=== PATIENT | male | born 1995 | race Caucasian/White ===

== ENCOUNTER 2023-07-21 15:50 | Emergency (ER) | payer OTHER, SELFPAY ==
[2023-07-21 15:54] VITALS: BP 137/66; PULSE 90; TEMP 36.8; O2SAT 99; BMI 23.5
--- NOTE | 2023-07-21 16:17 | ED.ANIMALBI1 ---
HPI - Animal Bite General Chief Complaint: Skin/Abscess/Foreign Body Stated Complaint: Bite - Dog Time Seen by Provider: 07/21/23 15:55 Source: patient Mode of arrival: walk-in Limitations: no limitations History of Present Illness HPI narrative: patient bitten yesterday by his girlfriend's dog. They brought home a new dog and the two started fighting -he intervened and the established dog bit him in the right forearm. He cleaned the puncture temple on the right forearm yesterday. He says that his tetanus is not up to date. Related Data Previous Rx's ?Medication ?Instructions ?Recorded amoxicillin 875 mg-potassium 1 tab PO BID #14 tabs 07/21/23 clavulanate 125 mg tablet Allergies Allergy/AdvReac Type Severity Reaction Status Date / Time No Known Drug Allergies Allergy Verified 07/21/23 15:54 Exam Narrative Exam Narrative: Nurses notes and vital signs reviewed and patient is not hypoxic. afebrile General: Well-appearing and in no apparent distress. Skin: Warm, dry, no pallor noted. No rash. Eye: Pupils are equal, round and EOMI. No scleral icterus. Ears, Nose, Mouth, and Throat: face not affected. Oral mucosa is moist Cardiovascular: normal peripheral perfusion. Respiratory: No accessory muscle use or respiratory distress. Musculoskeletal: RIGHT FOREARM: three punctate puncture temple to the soft tissue of the right forearm. No erythema, swelling or drainage from the punctures noted. Able to move the right wrist, elbow, fingers of right hand with expected strength. All 4 extremities with normal ROM, no hand or wrist tenderness, no upper extremity edema/swelling Neurological: A&O x4. No cranial nerve dysfunction observed. No truncal ataxia. Moves all extremities. Sensation intact. Psychiatric: Cooperative and interactive. Normal mood and affect. Constitutional Vital Signs, click to edit/add: Last Vital Signs Temp 98.3 F 07/21/23 15:54 Pulse 90 07/21/23 15:54 Resp 18 07/21/23 15:54 BP 137/66 07/21/23 15:54 Pulse Ox 99 07/21/23 15:54 Course Vital Signs Vital signs: Vital Signs Temperature 98.3 F 07/21/23 15:54 Pulse Rate 90 07/21/23 15:54 Respiratory Rate 18 07/21/23 15:54 Blood Pressure 137/66 07/21/23 15:54 Pulse Oximetry 99 07/21/23 15:54 Temperature 98.3 F 07/21/23 15:54 Pulse Rate 90 07/21/23 15:54 Respiratory Rate 18 07/21/23 15:54 Blood Pressure 137/66 07/21/23 15:54 Pulse Oximetry 99 07/21/23 15:54 MDM - Animal Bite MDM Narrative Medical decision making narrative: tetanus updated. Patient counseled on reasons to return including signs of infection. Prescribed augmentin BID x 1 week. Discharge Plan Discharge Stand Alone Forms: Portal Instructions Chief Complaint: Skin/Abscess/Foreign Body Clinical Impression: Puncture wound, Dog bite of right forearm Patient Disposition: Home, Self-Care Time of Disposition Decision: 16:22 Prescriptions / Home Meds: New amoxicillin-pot clavulanate 875-125 mg tablet 1 tab PO BID Qty: 14 0RF Print Language: Yoruba Instructions: Animal Bite (ED) Referrals: Physician,Non-Staff, MD [Primary Care Provider] - 1 week
[2023-07-21] MEDS: ADACEL DIPH,PERTUSS(ACELL),TET VAC/PF 0.5 ML ADULT SYRINGE IM (16:23)
== END 2023-07-21 16:30 | disposition home or self-care (01) ==
PROVIDERS: Emergency Provider Emergency Medicine
DX: S51.851A Open bite of right forearm, initial encounter (principal); Z23 Encounter for immunization; W54.0XXA Bitten by dog, initial encounter
CPT/HCPCS: 90471; 90715; 99284

== ENCOUNTER 2023-07-25 22:39 | Emergency (ER) | payer OTHER, SELFPAY ==
[2023-07-25 22:42] VITALS: BP 172/98; PULSE 93; TEMP 36.9; O2SAT 97; BMI 23.2
--- NOTE | 2023-07-25 22:51 | ED.GENADUL1 ---
HPI HPI - General Adult General Chief complaint: Upper Respiratory Infection Stated complaint: poss allergic reaction to meds Time Seen by Provider: 07/25/23 22:41 History of Present Illness HPI narrative: 27-year-old male presents for headache and head pressure and nausea. He thinks he may be having a reaction to the Augmentin that he has been on. He started the Augmentin 4 days ago and beginning 4 days ago shortly after starting the Augmentin he developed the symptoms. No fever or cough or chest pain. He is not complaining of shortness of breath and has not had a skin rash. He vomited once today. Related Data Previous Rx's ?Medication ?Instructions ?Recorded amoxicillin 875 mg-potassium 1 tab PO BID #14 tabs 07/21/23 clavulanate 125 mg tablet ibuprofen 800 mg tablet 800 mg PO Q8H PRN pain #20 tabs 07/25/23 loratadine 5 mg-pseudoephedrine ER 1 tab PO Q12H PRN nasal congestion 07/25/23 120 mg tablet,extended #20 tabs release,12hr (Claritin-D 12 Hour) ondansetron 4 mg disintegrating 4 mg PO Q6H PRN nausea and 07/25/23 tablet vomiting #20 tabs Allergies Allergy/AdvReac Type Severity Reaction Status Date / Time No Known Drug Allergies Allergy Verified 07/25/23 22:45 Opioid HPI Opioid Management Most Recent Opioid Data: Last Pain Scale 1 07/21/23 15:59 Review of Systems ROS Narrative A ten point review of systems is negative except as noted above. Exam Narrative Exam Narrative: Nurses note and vital signs reviewed and patient is not hypoxic. General: The patient appears well and in no apparent distress. Patient is resting comfortably on cart. Skin: Warm, dry, no pallor noted. There is no rash noted. Dog bite on his right forearm has healed well. No erythema or any other evidence of an infection Head: Normocephalic, atraumatic Eye: Normal conjunctiva, no drainage Ears, Nose, Mouth, and Throat: oral mucosa is moist. Nares patent. Tongue not swollen. No exudate. Cardiovascular: Regular Rate and Rhythm Respiratory: Patient is in no distress, no accessory muscle use, lungs are clear to auscultation, no wheezing, rales or rhonchi Back: non-tender GI: Normal bowel sounds, no tenderness to palpation, no masses appreciated. No rebound, guarding, or rigidity noted. Musculoskeletal: The patient has no evidence of calf tenderness, no pitting edema, symmetrical pulses noted bilaterally Neurological: A&O, normal speech Psychiatric: Cooperative Constitutional Vital Signs, click to edit/add: Last Vital Signs Temp 98.5 F 07/25/23 22:42 Pulse 93 H 07/25/23 22:42 Resp 18 07/25/23 22:42 BP 172/98 H 07/25/23 22:42 Pulse Ox 97 07/25/23 22:42 O2 Del Method Room Air 07/25/23 22:42 Course Vital Signs Vital signs: Vital Signs Temperature 98.5 F 07/25/23 22:42 Pulse Rate 93 H 07/25/23 22:42 Respiratory Rate 18 07/25/23 22:42 Blood Pressure 172/98 H 07/25/23 22:42 Pulse Oximetry 97 07/25/23 22:42 Oxygen Delivery Method Room Air 07/25/23 22:42 Temperature 98.5 F 07/25/23 22:42 Pulse Rate 93 H 07/25/23 22:42 Respiratory Rate 18 07/25/23 22:42 Blood Pressure 172/98 H 07/25/23 22:42 Pulse Oximetry 97 07/25/23 22:42 Oxygen Delivery Method Room Air 07/25/23 22:42 Medical Decision Making MDM Narrative Medical decision making narrative: He was stop the Augmentin. He will be treated symptomatically and was given IM Toradol here but also prescribed ibuprofen and Zofran and Claritin-D. Treatment diagnosis and follow-up were discussed with the patient. Discharge Plan Discharge Stand Alone Forms: Portal Instructions Chief Complaint: Upper Respiratory Infection Clinical Impression: Headache Patient Disposition: Home, Self-Care Time of Disposition Decision: 22:49 Condition: Good Mode of Transportation: Private Vehicle Prescriptions / Home Meds: New ibuprofen 800 mg tablet 800 mg PO Q8H PRN (Reason: pain) Qty: 20 0RF Claritin-D 12 Hour 5-120 mg tablet extended release 12 hr 1 tab PO Q12H PRN (Reason: nasal congestion) Qty: 20 0RF ondansetron 4 mg tablet,disintegrating 4 mg PO Q6H PRN (Reason: nausea and vomiting) Qty: 20 0RF No Action amoxicillin-pot clavulanate 875-125 mg tablet 1 tab PO BID Qty: 14 0RF Print Language: Armenian Instructions: Acute Headache (ED) Additional Instructions: Discontinue the Augmentin Referrals: Physician,Non-Staff, MD [Primary Care Provider] - 1 week
[2023-07-25] MEDS: KETOROLAC TROMETHAMINE 60 MG/2 ML VIAL IM (22:56)
== END 2023-07-25 23:00 | disposition home or self-care (01) ==
PROVIDERS: Emergency Provider Emergency Medicine
DX: R51.9 Headache, unspecified (principal)
CPT/HCPCS: 96372; 99284